=== PATIENT | male | born 2000 | race Caucasian/White ===

== ENCOUNTER 2023-02-07 10:38 | Emergency (ER) | payer BC, SELFPAY ==
[2023-02-07 10:50] VITALS: BP 118/79; PULSE 103; RESP 16; TEMP 36.3; O2SAT 99
--- NOTE | 2023-02-07 11:27 | ED.EAR ---
HPI - Ear Problem General Chief complaint: Ear Stated complaint: EAR CLOGGED Time Seen by Provider: 02/07/23 11:23 Source: patient Mode of arrival: ambulatory Limitations: no limitations History of Present Illness HPI Narrative: 22-year-old male presented for complaint of bilateral ear pain and decreased hearing, right worse than left. Onset 2 days. Reports recent URI symptoms that have improved. Not taking anything for symptoms. Denies tinnitus, ear drainage, dizziness, n/v/d/f/c. MD Complaint: ear pain Related Data Allergies Allergy/AdvReac Type Severity Reaction Status Date / Time No Known Allergies Allergy Verified 02/07/23 10:49 Review of Systems Review of Systems: CONSTITUTIONAL: Denies malaise, chills, or fever. EYES: Denies visual changes, redness, or discharge. ENT: Denies rhinorrhea, congestion, sinus pain, and sore throat. Reports ear pain CARDIOVASCULAR: Denies chest pain, palpitations, or edema. RESPIRATORY: Denies cough or dyspnea. GASTROINTESTINAL: Denies abdominal pain, nausea, vomiting, diarrhea SKIN: Denies rash or itching. MUSCULOSKELETAL: Denies myalgia. NEUROLOGIC: Denies headache. All systems reviewed & are unremarkable except as noted in HPI and below PMFSH Past Medical History Medical History (Updated 02/07/23 @ 11:40 by Nelly Ribeiro APRN) No pertinent past medical history Comments At time of signature, agree with nursing past medical, surgical, social and family history. There is no relevant family history pertinent to the presenting complaint Exam Narrative: GENERAL: Well-appearing HEAD: Normocephalic EYES: PERRLA, conjunctivae clear ENT: Nares clear. Mucous membranes moist. Left TM erythematous, bulging, with mild purulent effusion; Right TM erythematous, bulging and intact, with large amount purulent effusion; canal not erythematous. No drainage no tragal tenderness. Oropharynx not erythematous without lesions. NECK: Supple. No lymphadenopathy CHEST: Clear to auscultation, breath sounds equal. No wheezing, rhonchi, rales, or stridor. No respiratory distress, speaks in full sentences. HEART: Regular rate and rhythm. No murmur heard. SKIN: Warm, dry, no rash. NEURO: Alert and oriented x3. PSYCH: Normal mood and affect Course Course Emergency Course: Patient is aware of diagnosis, understands and agrees to treatment plan. Anticipatory guidance given. Patient agrees to follow-up as directed and is aware of reasons to seek care at the emergency department. Portions of this record may have been created with voice recognition software Level of Care: Express Care Visit Vital Signs Vital signs: Vital Signs Temperature 97.4 F L 02/07/23 10:50 Pulse Rate 103 H 02/07/23 10:50 Respiratory Rate 16 02/07/23 10:50 Blood Pressure 118/79 02/07/23 10:50 Pulse Oximetry 99 02/07/23 10:50 Temperature 97.4 F L 02/07/23 10:50 Pulse Rate 103 H 02/07/23 10:50 Respiratory Rate 16 02/07/23 10:50 Blood Pressure 118/79 02/07/23 10:50 Pulse Oximetry 99 02/07/23 10:50 Reviewed Medical Decision Making MDM Narrative Medical decision making narrative: Discussed physical exam findings consistent with bilateral AOM. Advised supportive measures and signs/symptoms to go to the ER. Patient is appropriate for outpatient treatment and follow-up. Differential Diagnosis Differential Diagnosis: Coronavirus, strep pharyngitis, allergic rhinitis, upper respiratory tract infection, sinusitis, rhinosinusitis, nasopharyngitis, viral pharyngitis, otitis media, otitis externa, eustachian tube dysfunction, foreign body, cerumen impaction. Vital Signs Vital Signs: Vital Signs Temperature 97.4 F L 02/07/23 10:50 Pulse Rate 103 H 02/07/23 10:50 Respiratory Rate 16 02/07/23 10:50 Blood Pressure 118/79 02/07/23 10:50 Pulse Oximetry 99 02/07/23 10:50 Temperature 97.4 F L 02/07/23 10:50 Pulse Rate 103 H 02/07/23 10:50 Respiratory Rate 16
== END 2023-02-07 11:32 | disposition home or self-care (01) ==
PROVIDERS: Emergency Provider Nurse Practitioner Family
DX: H66.001 Acute suppurative otitis media without spontaneous rupture of ear drum, right ear (principal)
CPT/HCPCS: 99203; G0463